=== PATIENT | male | born 1965 | race Two or more races ===

== ENCOUNTER 2016-12-31 20:20 | Emergency (ER) | payer OTHER ==
[~2016-12-31] VITALS: Ht 185.4 cm; Wt 99.8 kg
[2016-12-31 20:20] VITALS: BP 162/96
--- NOTE | 2016-12-31 20:51 | Emergency Room Report ---
History of Present Illness General Chief Complaint: Laceration Source: Patient, EMS Present Illness HPI 51-year-old male, brought by EMS, EMS stated alcohol intoxication. History not able to be obtained as patient is intoxicated/unable to speak or cooperate. Laceration noted to right forehead. No other history able to be obtained Allergies: Coded Allergies: No Known Allergies (Unverified , 12/31/16) Patient History Past Medical History: see triage record Past Surgical History: none Pertinent Family History: none Reviewed Nursing Documentation: PMH: Agreed, PSxH: Agreed Nursing Documentation-PMH Hx Hypertension: Yes Review of Systems All Other Systems: limited - unable to assess pt intoxicated Physical Exam Vital Signs Date Time Temp Pulse Resp B/P (MAP) Pulse Ox O2 Delivery O2 Flow Rate FiO2 12/31/16 20:17 99 16 162/96 100 Room Air Sp02 EP Interpretation: reviewed, normal General Appearance: other - Disheveled young male, not responsive/intoxicated, smells of alcohol Head: normocephalic - hematoma noted to R forehead, 1 linear lac ~2cm, another lac, complicated triangular shape, ~4cm, minimal actve bleeding, no raccoon eyes or lawrence sign Eyes: bilateral eye normal inspection, bilateral eye PERRL, bilateral eye EOMI ENT: normal ENT inspection, normal pharynx, moist mucus membranes Neck: normal inspection, full range of motion, supple Respiratory: normal inspection, lungs clear, normal breath sounds, no respiratory distress, no retraction, no wheezing, chest symmetrical Cardiovascular #1: normal inspection, regular rate, rhythm, no edema, normal capillary refill Cardiovascular #2: 2+ radial (R), 2+ radial (L) Gastrointestinal: normal inspection, non tender, soft, non-distended, no guarding Musculoskeletal: normal inspection, back normal, normal range of motion, non- tender Neurologic: other - intoxicated/sleeping/responsive to pain/ smells of alcohol. will not cooperate with neuro exam Skin: normal color, no rash, warm/dry, well hydrated, normal turgor Procedures Critical Care Time Critical Care Time 40 minutes of CC time 51-year-old male, altered, alcohol intoxication, found to have subdural hematoma VS: Normal Patient altered, intubated PLAN: IV access, labs, CT head, CT C-spine, Keppra, mannitol, fentanyl Patient requires transfer the [facility] for higher level of care CC time also includes review of labs, review of EMR, discussion with family and paperwork from SNF, d/w hospitalist CC could include dosing of pressors, additional Abx CC time does not include procedures Laceration/Wound Repair Laceration/Wound Repair : Consent: Emergent Wound Location: head Wound's Depth, Shape: superficial Wound Length (cm): 6 Wound Explored: clean Irrigated w/ Saline (ccs): 500 Betadine Prep?: Yes Wound Repaired With: sutures Suture Size/Type: 5:0 Number of Sutures: 6 Layer Closure?: Yes Sterile Dressing Applied?: Yes Patient Tolerated: Well Complications: None Intubation Intubation : Consent: Emergent Intubation Method: orotracheal Tube Size (cm): 7.5 Medications: Etomidate, Rocuronium Breath Sounds after Intubation: equal Intubation Complications: no complications Post Intubation Xray: Yes Attempts: One Patient Tolerated: Well Complications: None Medical Decision Making Diagnostic Impression: Primary Impression: Alcohol intoxication Additional Impressions: Laceration of forehead Subdural hematoma ER Course 51-year-old with alcohol intoxication laceration to forehead DDX: Likely alcohol intoxication Laceration forehead rule out intracranial hemorrhage Patient was UNABLE to obtain CT C spine as patient was moving a lot in CT room Cervical collar placed Plan: Obtain labs, alcohol level, IVF, Lac repair, CT head, Tdap, pending sobriety ER course: CT head showing 2 cm right-sided subdural with 1.4 mm midline shift Patient is still altered Intubated, ET tube placement confirmed with chest x-ray Patient given Keppra, mannitol, fentanyl I spoke with neurointensivist from [facility], Dr. Obrien at 10:10 PM He is made aware of the patient and has accepted patient for transfer Laceration of right forehead repaired, Tdap given Disposition: Patient requires transfer the [facility] neuro ICU for acute subdural hematoma , higher level of care Spoke to Dr. Obrien who has accepted patient for transfer Please note that this Emergency Department Report was dictated using [employer] administrator technology software, occasionally this can lead to erroneous entry secondary to interpretation by the dictation equipment EKG Diagnostic Results EP Interpretation: Yes Rate: normal Rhythm: NSR ST Segments: No acute changes, left ventricular hypertrophy ASA given to patient: No Rhythm Strip EP Interpretation: Yes Rate: 90 Rhythm: NSR, no PVCs, no ectopy Chest X-ray CXR: Ordered: Yes 1 view Indication: Altered mental status EP interpretation: Yes Interpretation: No consolidation, no effusion, no PTX, no acute cardiopulmonary disease, ET tube noted to be high above the levar Impression: No acute disease Electronically signed by Jak Soto MD Chest X-ray CXR: Ordered: Yes 1 view Indication: ET tube placement EP interpretation: Yes Interpretation: No consolidation, no effusion, no PTX, no acute cardiopulmonary disease, ET tube at proper position of levar Impression: No acute disease Electronically signed by Jak Soto MD Laboratory Tests Test 12/31/16 21:30 White Blood Count 6.4 K/UL (4.8-10.8) Red Blood Count 4.03 M/UL (4.70-6.10) L Hemoglobin 10.6 G/DL (14.2-18.0) L Hematocrit 34.0 % (42.0-52.0) L Mean Corpuscular Volume 84 FL (80-99) Mean Corpuscular Hemoglobin 26.4 PG (27.0-31.0) L Mean Corpuscular Hemoglobin Concent 31.3 G/DL (32.0-36.0) L Red Cell Distribution Width 13.4 % (11.6-14.8) Platelet Count 140 K/UL (150-450) L Mean Platelet Volume 8.3 FL (6.5-10.1) Neutrophils (%) (Auto) 53.7 % (45.0-75.0) Lymphocytes (%) (Auto) 34.7 % (20.0-45.0) Monocytes (%) (Auto) 10.3 % (1.0-10.0) H Eosinophils (%) (Auto) 0.6 % (0.0-3.0) Basophils (%) (Auto) 0.7 % (0.0-2.0) Prothrombin Time 10.7 SEC (9.30-11.50) Prothrombin Time INR 1.0 (0.9-1.1) PTT 22 SEC (23-33) L Sodium Level 136 MMOL/L (136-145) Potassium Level 3.5 MMOL/L (3.5-5.1) Chloride Level 99 MMOL/L (98-107) Carbon Dioxide Level 24 MMOL/L (21-32) Anion Gap 14 mmol/L (5-15) Blood Urea Nitrogen 5 mg/dL (7-18) L Creatinine 0.9 MG/DL (0.55-1.30) Estimate Glomerular Filtration Rate > 60 mL/min (>60) Glucose Level 137 MG/DL (74-106) H Calcium Level 8.8 MG/DL (8.5-10.1) Total Bilirubin 0.4 MG/DL (0.2-1.0) Aspartate Amino Transferase (AST) 66 U/L (15-37) H Alanine Aminotransferase (ALT) 34 U/L (12-78) Alkaline Phosphatase 68 U/L (46-116) Troponin I 0.000 ng/mL (0.000-0.056) Total Protein 8.0 G/DL (6.4-8.2) Albumin 3.5 G/DL (3.4-5.0) Globulin 4.5 g/dL Albumin/Globulin Ratio 0.8 (1.0-2.7) L Serum Alcohol 315 mg/dL CT/MRI/US Diagnostic Results CT/MRI/US Diagnostic Results : Imaging Test Ordered: CT Head Impression Preliminary Findings Only See Final Report For Complete Findings CT HEAD: Right extra-axial subdural heterogeneous subdural hematoma measuring up to 2 cm , causing mass effect on the right hemisphere with right to left shift of 14 mm. There is effacement of the right ventricle and the basal cisterns. Few other scattered areas of hemorrhage. Last Vital Signs Date Time Temp Pulse Resp B/P (MAP) Pulse Ox O2 Delivery O2 Flow Rate FiO2 12/31/16 20:17 99 16 162/96 100 Room Air Disposition: XFER SHT-TRM HOSP Condition: Critical Scripts Unable to Obtain Active Prescriptions or Reported Meds Jak Soto M.D. Dec 31, 2016 20:51
[2016-12-31] MEDS ORDERED: Tetanus/Diptheria/Pertussis Vaccine 0.5ml Syr IM ONE (21:00)
[2016-12-31] MEDS ORDERED: levETIRAcetam 1,500 MG in D5W 95 ML IVPB SCH ×2 (21:30→22:45)
[2016-12-31] MEDS ORDERED: levETIRAcetam 500mg vial IV ONE (21:42)
[2016-12-31] MEDS ORDERED: fentaNYL 100 mcg/2 mL IV ONE (21:45)
[2016-12-31] MEDS ORDERED: levETIRAcetam 1,000mg/NS100ml 100 ML IVPB ONE (21:45)
[2016-12-31 22:00] VITALS: BP 151/114
[2016-12-31 22:06] LABS: BASOPHILS % (AUTO) 0.7 % (0.0-2.0); EOSINOPHILS % (AUTO) 0.6 % (0.0-3.0); LYMPHOCYTES % (AUTO) 34.7 % (20.0-45.0); MEAN CORPUSCULAR HEMOGLOBIN 26.4 PG (27.0-31.0); MEAN CORPUSCULAR HGB CONC 31.3 G/DL (32.0-36.0); MEAN CORPUSCULAR VOLUME 84 FL (80-99); MEAN PLATELET VOLUME 8.3 FL (6.5-10.1); MONOCYTES % (AUTO) 10.3 % (1.0-10.0); NEUTROPHILS % (AUTO) 53.7 % (45.0-75.0); PLATELET COUNT 140 K/UL (150-450); RED BLOOD COUNT 4.03 M/UL (4.70-6.10); RED CELL DISTRIBUTION WIDTH 13.4 % (11.6-14.8); WHITE BLOOD COUNT 6.4 K/UL (4.8-10.8)
[2016-12-31 22:09] LABS: ALANINE AMINOTRANSFERASE 34 U/L (12-78); ALBUMIN/GLOBULIN RATIO 0.8 (1.0-2.7); ANION GAP 14 mmol/L (5-15); ASPARTATE AMINO TRANSFERASE 66 U/L (15-37); CALCIUM 8.8 MG/DL (8.5-10.1); CARBON DIOXIDE 24 MMOL/L (21-32); CHLORIDE 99 MMOL/L (98-107); CREATININE 0.9 MG/DL (0.55-1.30); GLOMERULAR FILTRATION RATE > 60 mL/min (>60); POTASSIUM 3.5 MMOL/L (3.5-5.1); SODIUM 136 MMOL/L (136-145)
[2016-12-31 22:10] LABS: ALCOHOL 315 mg/dL
[2016-12-31 22:15] VITALS: BP 134/97
[2016-12-31 22:24] LABS: PROTHROMBIN TIME 10.7 SEC (9.30-11.50)
[2016-12-31] MEDS ORDERED: Propofol 200mg/20ml IV ONE (22:45)
[2016-12-31 22:47] VITALS: BP 173/113
[2016-12-31 23:02] VITALS: BP 130/84
[2017-01-01] MEDS ORDERED: Etomidate 40mg/20ml Inj IV ONE (00:15)
[2017-01-01] MEDS ORDERED: Zemuron 50mg/5ml Inj IV ONE (00:15)
--- NOTE | 2017-01-01 09:01 | Diagnostic Imaging Report ---
Indications: Head trauma Technique: Spiral acquisitions obtained through the brain. Angled axial and coronal 5 x 5 mm slices were reconstructed. Total dose length product thousand 4 and 95 mGycm. CTDI vol(s) 70 mGy. Dose reduction achieved using automated exposure control Comparison: None Findings: Is a large right convexity subdural hematoma which demonstrates attenuation blood consistent with acute hematoma. This measures 2 cm in thickness. This results in considerable mass effect, with obliteration of the ipsilateral sulci, marked attenuation of the right lateral ventricle and third ventricle and 14 mm of [id number] midline shift. There is a small focus of intraparenchymal hemorrhage in the posterior inferior right frontal lobe, which measures 9 mm in diameter, demonstrates some surrounding edema. There is low-attenuation and loss of escobar-white differentiation of the right temporal lobe, particularly posteriorly. The basilar cisterns remain patent. No definite subarachnoid blood. There is also a large extracranial scalp hematoma in the right frontotemporal and periorbital region. No calvarial fracture is demonstrated. The orbits and sinuses are unremarkable. Impression: Large right convexity subdural hematoma, resulting in significant mass effect with 14 mm midline shift. Small right inferior frontal parenchymal hematoma. Large right frontotemporal and periorbital scalp contusion This agrees with the preliminary interpretation provided overnight by [facility] teleradiology service. The CT scanner at [facility] is accredited by the [employer] and the scans are performed using protocols designed to limit radiation exposure to as low as reasonably achievable to attain images of sufficient resolution adequate for diagnostic evaluation.
--- NOTE | 2017-01-01 10:16 | Diagnostic Imaging Report ---
Indication: Chest pain Technique: One view of the chest Comparison: none Findings: Is an endotracheal tube in place, in good position, tip approximately 6 cm above the levar. There is possibly minimal atelectasis at the left lung base. Lungs and pleural spaces are otherwise clear. Heart size is normal. Impression: Satisfactory endotracheal intubation No acute cardiopulmonary process This agrees with the preliminary interpretation provided by the emergency room physician
--- NOTE | 2017-01-02 14:46 | Cardiology Report ---
APPROVED REPORT EKG Measurement Heart [id number] LA [id number] Normal sinus rhythm Voltage criteria for left ventricular hypertrophy Abnormal ECG
== END 2016-12-31 23:06 | disposition short-term general hospital (02) ==
LOC: EDBD 20:20 → EMR 21:44
DX: S01.81XA Laceration without foreign body of other part of head, initial encounter (principal); S06.5X9A Traumatic subdural hemorrhage with loss of consciousness of unspecified duration, initial encounter; F10.129 Alcohol abuse with intoxication, unspecified; I10 Essential (primary) hypertension; X58.XXXA Exposure to other specified factors, initial encounter; Y92.9 Unspecified place or not applicable
CPT/HCPCS: 12014; 31500; 36415; 70450; 71010; 80053; 80329; 82962; 84478; 84484; 85025; 85610; 85730; 86850; 86900; 86901; 90471; 90715; 93005; 94002; 94664; 96361; 96365; 96375; 99291; J2150; J2704; J3010; Z7502